=== PATIENT | female | born 1945 ===

== ENCOUNTER 2018-01-21 11:50 | Emergency (ER) | payer OTHER ==
[~2018-01-21] VITALS: Ht 157.5 cm; Wt 59.0 kg
[~2018-01-21 11:50] MED LIST: CIPRO750 MG PO; CLONAZEPAM1 MG PO; DOCUSATE SODIU100 MG PO; METHYLPRED4 MG/DOSE- PO; NEURONTIN PO; NEURONTIN800 MG PO; PERCOCET 5/3251 TAB PO; PROTONIX40 M1; ZANTAC150 MG
[2018-01-21] MEDS ORDERED: DICLOFENAC POTA50 MG PO (14:26)
== END 2018-01-21 14:29 | disposition home or self-care (01) ==
LOC: ER 11:50
DX: S80.02XA Contusion of left knee, initial encounter (principal); W18.39XA Other fall on same level, initial encounter; Y93.89 Activity, other specified; Y92.098 Other place in other non-institutional residence as the place of occurrence of the external cause; Y99.8 Other external cause status

== ENCOUNTER 2021-05-09 12:06 | Emergency (ER) | payer OTHER ==
[~2021-05-09] VITALS: Ht 162.6 cm; Wt 59.0 kg
[~2021-05-09 12:06] MED LIST changes: +DICLOFENAC POTA50 MG PO
== END 2021-05-09 22:26 | disposition home or self-care (01) ==
LOC: ER 12:06
DX: K52.89 Other specified noninfective gastroenteritis and colitis (principal)

== ENCOUNTER 2022-07-02 16:17 | Emergency (ER) | payer OTHER ==
[~2022-07-02] VITALS: Ht 154.9 cm; Wt 61.2 kg
[2022-07-02] MEDS ORDERED: CARAFATE1 GM PO (18:21)
[2022-07-02] MEDS ORDERED: PEPCID AC20 MG PO (18:21)
== END 2022-07-02 18:42 | disposition home or self-care (01) ==
LOC: ER 16:17
DX: K52.89 Other specified noninfective gastroenteritis and colitis (principal); Z91.013 Allergy to seafood

== ENCOUNTER 2022-11-18 12:45 | Outpatient (CLI) | payer OTHER ==
[~2022-11-18 12:45] MED LIST changes: +CARAFATE1 GM PO; +PEPCID AC20 MG PO
== END 2022-11-18 12:50 | disposition home or self-care (01) ==
LOC: TOM 12:45
PROVIDERS: ATTEND Internal Medicine Pulmonary Disease
DX: R06.02 Shortness of breath (principal); Z86.16 Personal history of COVID-19; Z87.891 Personal history of nicotine dependence